=== PATIENT | female | born 1965 | race Caucasian/White ===

== ENCOUNTER 2019-11-26 11:01 | Emergency (ER) | payer OTHER ==
[~2019-11-26] VITALS: Ht 160 cm; Wt 54.4 kg
--- OUTSIDE RECORDS SUMMARY | 2019-11-26 11:03 | XMS REPORT ---
Author Author [facility] Address Unknown Phone Unavailable Care Team Providers Care Field Recorder Name Role Phone Bety POTTER Unavailable Unavailable Problems This patient has no known problems. Allergies, Adverse Reactions, Alerts This patient has no known allergies or adverse reactions. Medications This patient has no known medications. Results Test Description Test Time Test Comments Text Results Atomic Results Result Comments CHEST SINGLE (PORTABLE) 2019-11-16 18:42:00 [facility] [address] [address] Patient Name: ORAL ALEMAN MR #: [id number] : 1965 Age/Sex: 54/F Req #: [id number] Adm Physician: Ordered by: ORLIN POTTER MD Report #: [id number] Location: ER Room/Bed: Procedure: [id number] DX/CHEST SINGLE (PORTABLE) Exam Date: Exam Time: REPORT STATUS: Signed EXAMINATION: CHEST SINGLE (PORTABLE) COMPARISON: None INDICATION: Hypertension HTN DISCUSSION: Frontal view of the chest obtained at 1813 hours. The lung apices are not included on the image. HEART AND MEDIASTINUM: The heart is normal in size. The aorta is normal in size and morphology. LINES: None. LUNGS: Mild hyperinflation. Streaky bands in the lower lung zones may represent subsegmental atelectasis or scarring. No pneumonia or pulmonary edema. PLEURA: No pleural effusion or pneumothorax. BONES AND SOFT TISSUES: No focal osseous lesion. The soft tissues are normal. IMPRESSION: Bibasilar subsegmental atelectasis or scarring. Signed by: Dr. Radha Espinoza MD on 11/16/2019 6:43 PM Dictated By: RADHA ESPINOZA MD 42 Transcribed By: JEREMY on 11/16/191842 COPY TO: ORLIN POTTER MD CT BRAIN WO 2019-11-16 18:40:00 [address] [address] Patient Name: ORAL ALEMAN MR #: [id number] : 1965 Age/Sex: 54/F Req #: [id number] Adm Physician: Ordered by: ORLIN POTTER MD Report #: [id number] Location: ER Room/Bed: Procedure: [id number] CT/CT BRAIN WO Exam Date: Exam Time: REPORT STATUS: Signed CT BRAIN WO HISTORY: Faint, hypertension, unsteady gait COMPARISON: None. TECHNIQUE: Noncontrast axial scans were obtained from skull base to the vertex. Coronal and sagittal reconstructions obtained from the axial data. One or more of the following dose reduction techniques were used: Automated exposure control, adjustment of the mA and/or kV according to patient size, and/or utilization of iterative reconstruction technique. DISCUSSION: Scalp/Skull: Unremarkable. Brain sulci: Appropriate for patient's age. Ventricles: Normal in size and configuration. No hydrocephalus. Extra-axial spaces: No masses or fluid collections. Parenchyma: Mild periventricular white matter hypodensities are likely chronic microvascular ischemic changes. Mild carotid siphon calcifications are present. Otherwise, no mass, hemorrhage, or large vascular territory acute infarct. Dural sinuses: No abnormal densities. Sellar/Suprasellar region: Intact. Skull base: Intact. Incidental findings: None. IMPRESSION: No acute intracranial abnormalities. Signed by: Dr. Rocky Weiss M.D. on 11/16/2019 6:44 PM Dictated By: ROCKY WEISS MD 43 Transcribed By: JEREMY on 11/16/191843 COPY TO: ORLIN POTTER MD
[2019-11-26] MEDS ORDERED: SODIUM CHLORIDE 0.9% 1000ML 1,000 ML IV STA (11:38)
[2019-11-26] MEDS ORDERED: ASPIRIN 81 MG CHEW TAB PO ONE (12:00)
[2019-11-26] MEDS ORDERED: METOPROLOL TARTRATE 25 MG TAB PO ONE (12:30)
--- NOTE | 2019-11-26 12:42 | Diagnostic Imaging Report ---
Chest, 1 view, 11/26/2019. History: Tachycardia. Comparison: 11/16/2019. Findings: The cardiomediastinal silhouette and pulmonary vasculature are within normal limits for a portable exam. There is no focal consolidation or pleural effusion. There are no acute osseous or soft tissue abnormalities. Impression: No acute cardiopulmonary abnormality. Signed by: Jonathan Bejarano on 11/26/2019 12:39 PM
[2019-11-26 13:13] LABS: BASOPHILS # (AUTO) 0.1 (0.0-0.1); BASOPHILS % 0.8 % (0.0-1.0); EOSINOPHILS % 0.6 % (0.0-6.0); HEMATOCRIT 36.4 % (34.2-44.1); HEMOGLOBIN 12.4 g/dL (12.0-16.0); LYMPHOCYTES # (AUTO) 2.6 (1.0-3.2); LYMPHOCYTES % 39.5 % (18.0-39.1); MEAN CORPUSCULAR HEMOGLOBIN 34.4 pg (28-32); MEAN CORPUSCULAR HGB CONC 34.1 g/dL (31-35); MEAN CORPUSCULAR VOLUME 101.1 fL (81-99); MONOCYTES # (AUTO) 0.4 (0.2-0.8); MONOCYTES % 6.6 % (4.4-11.3); NEUTROPHILS # (AUTO) 3.4 (2.1-6.9); NEUTROPHILS % 52.2 % (38.7-80.0); PLATELET COUNT 253 x10e3/uL (140-360); RED CELL DISTRIBUTION WIDTH 14.4 % (11.7-14.4)
[2019-11-26 13:23] LABS: INR 1.07; PROTHROMBIN TIME 14.2 seconds (11.9-14.5)
[2019-11-26 13:24] LABS: PARTIAL THROMBOPLASTIN TIME 29.5 seconds (23.8-35.5)
[2019-11-26 13:27] LABS: BILIRUBIN,URINE NEGATIVE (NEGATIVE); CLARITY,URINE CLOUDY (CLEAR); COLOR,URINE YELLOW (YELLOW); KETONES,URINE NEGATIVE (NEGATIVE); LEUKOCYTE ESTERASE ,URINE TRACE (NEGATIVE); NITRITE,URINE NEGATIVE (NEGATIVE); PROTEIN,URINE DIPSTICK NEGATIVE (NEGATIVE); URINE UROBILINOGEN 0.2 mg/dL (0.2 - 1)
[2019-11-26 13:28] LABS: AMPHETAMINES SCREEN,URINE NEGATIVE (NEGATIVE); BENZODIAZEPINES SCREEN,URINE NEGATIVE (NEGATIVE); PHENCYCLIDINE SCREEN,URINE NEGATIVE (NEGATIVE)
[2019-11-26 13:31] LABS: BACTERIA,URINE FEW /HPF; EPITHELIAL CELLS,URINE MODERATE /LPF; RBC,URINE 0-5 /HPF (0-5)
[2019-11-26 13:36] LABS: ALANINE AMINOTRANSFERASE 12 IU/L (0-55); ALBUMIN 4.3 g/dL (3.5-5.0); ALBUMIN/GLOBULIN RATIO 1.1 (0.8-2.0); ALKALINE PHOSPHATASE 51 IU/L (40-150); ANION GAP 18.2 mmol/L (8-16); BLOOD UREA NITROGEN 15 mg/dL (7-26); BUN/CREATININE RATIO 18 (6-25); CALCIUM 9.4 mg/dL (8.4-10.2); CARBON DIOXIDE 21 mmol/L (22-29); CHLORIDE 100 mmol/L (98-107); CREATINE KINASE 97 IU/L (29-168); CREATININE, SERUM 0.83 mg/dL (0.57-1.11); EST GLOMERULAR FILTRATION RATE > 60 ML/MIN (60-); GLUCOSE 91 mg/dL (74-118); MAGNESIUM 1.4 MG/DL (1.3-2.1); POTASSIUM 3.2 mmol/L (3.5-5.1); SODIUM 136 mmol/L (136-145)
[2019-11-26 13:55] LABS: THYROID STIMULATING HORMONE 0.639 uIU/mL (0.350-4.940)
[2019-11-26] MEDS ORDERED: POTASSIUM CHLORIDE 20 MEQ TAB CR PO STA (14:16)
[2019-11-26 14:31] VITALS: BP 120/78
== END 2019-11-26 14:40 | disposition home or self-care (01) ==
LOC: ER 11:01
DX: R00.2 Palpitations (principal); R00.0 Tachycardia, unspecified; R51 Headache; I10 Essential (primary) hypertension; K21.9 Gastro-esophageal reflux disease without esophagitis; Z87.19 Personal history of other diseases of the digestive system; F17.210 Nicotine dependence, cigarettes, uncomplicated
CPT/HCPCS: 36415; 71045; 80053; 80307; 80320; 81001; 82550; 82553; 83735; 83880; 84443; 84484; 85025; 85379; 85610; 85730; 87086; 93005; 99284; J7030

== ENCOUNTER 2023-04-22 12:24 | Emergency (ER) | payer OTHER ==
[~2023-04-22] VITALS: Ht 160 cm; Wt 54.4 kg
[2023-04-22 12:36] VITALS: O2SAT 100
[2023-04-22 13:19] LABS: BASOPHILS % 0.9 % (0.0-1.0); EOSINOPHILS % 0.7 % (0.0-6.0); HEMOGLOBIN 11.6 g/dL (12.0-16.0); LYMPHOCYTES % 47.8 % (18.0-39.1); MEAN CORPUSCULAR HEMOGLOBIN 36.7 pg (28-32); MEAN CORPUSCULAR HGB CONC 36.3 g/dL (31-35); MEAN CORPUSCULAR VOLUME 101.3 fL (81-99); MONOCYTES # (AUTO) 0.3 (0.2-0.8); MONOCYTES % 5.9 % (4.4-11.3); NEUTROPHILS # (AUTO) 1.9 (2.1-6.9); NEUTROPHILS % 44.5 % (38.7-80.0); PLATELET COUNT 84 x10e3/uL (140-360); RED BLOOD COUNT 3.16 x10e6/uL (3.6-5.1); RED CELL DISTRIBUTION WIDTH 13.3 % (11.7-14.4)
[2023-04-22 13:25] LABS: INR 1.08; PROTHROMBIN TIME 14.6 seconds (11.9-14.5)
[2023-04-22 13:26] LABS: PARTIAL THROMBOPLASTIN TIME 27.1 seconds (23.8-35.5)
[2023-04-22 13:29] LABS: ALBUMIN 3.7 g/dL (3.5-5.0); ANION GAP 22.3 mmol/L (8-16); CREATININE, SERUM 0.75 mg/dL (0.57-1.11); POTASSIUM 3.3 mmol/L (3.5-5.1)
== END 2023-04-22 14:50 | disposition home or self-care (01) ==
LOC: ER 12:34
DX: K92.2 Gastrointestinal hemorrhage, unspecified (principal); I10 Essential (primary) hypertension; K21.9 Gastro-esophageal reflux disease without esophagitis; M10.9 Gout, unspecified; Z87.19 Personal history of other diseases of the digestive system
CPT/HCPCS: 36415; 80053; 82550; 84484; 85025; 85610; 85730; 99283